=== PATIENT | female | born 1950 | race Caucasian/White ===

== ENCOUNTER → 2017-09-16 | Day surgery (SDC) | payer BC ==
[~2017-09-16] MED LIST: ACETAMINOPHEN 1000 MG/100 ML 100 ML IV ONE; AMITRIPTYLINE H25 MG PO; ASPIRIN81 M2 PO; ATIVAN1 MG PO; BENTYL10 MG PO; COQ-10100 MG; DEXAMETHASONE SOD PHOS 10 MG/1 ML VIAL ONE; ELAVIL25 MG GT; FENTANYL CITRATE/PF 100MCG/2 ML INJ ONE; FLAGYL250 MG PO; FOLIC ACID1 MG PO; FUROSEMIDE20 MG PO; HORMONE SHOT; HYOSCYAMINE0.125 M2 SL; IMITREX6 MG/0.52 IM; LEVAQUIN500 MG PO; LEXAPRO10 MG PO; LIDOCAINE HCL 2% LOCAL INJ 5 ML SDV VIAL INJ ONE; LINZESS PO; LUNESTA3 MG PO; METOCLOPRAMIDE HCL 10 MG/2ML VIAL ONE; MIDAZOLAM HCL 2 MG/2 ML VIAL ONE; NORCO 7.5-3251 EACH PO; PANTOPRAZOLE 40 MG 10ML VIAL ONE; PHENERGAN PO; PREMARIN0.625 MG PO; PROMETHAZINE HCL (IM) 25 MG/ML VIAL ONE; PROPOFOL IV EMULSION 10 MG/ML 50 ML VIAL ONE; RESTORIL7.5 MG PO; SYNTHROID50 MCG PO; VITAMIN D1000 UNI1 PO; Z.0.LIPITOR20 MG PO; Z.0.MAXALT10 MG PO; Z.0.PROTONIX40 MG PO; ZOFRAN4 MG PO
--- NOTE | 2017-09-16 12:24 | Operative Report ---
DATE OF PROCEDURE: September 16, 2017 REFERRING PHYSICIAN: Dr. Rhea Ruby. PROCEDURE PERFORMED: 1. Esophagogastroduodenoscopy. 2. Colonoscopy with polypectomy. INDICATIONS FOR ESOPHAGOGASTRODUODENOSCOPY: Heartburn indigestion, nausea. INDICATIONS FOR COLONOSCOPY: Colorectal cancer screening. MEDICATION: Patient was done under MAC. Please see anesthesiologist's note. PROCEDURE: With the patient in the left lateral decubitus position, the flexible fiberoptic Olympus gastroscope was introduced into the esophagus under direct visualization without any difficulty. There was some patchy erythema noted in the distal esophagus. The scope was then advanced with ease into the stomach. Mucosa overlying the antrum and the body revealed some patchy erythema and mild to moderate edema, and biopsies were obtained and sent to stain for H. pylori. Pylorus appeared to be of normal contour and shape, was intubated with ease, and the scope was advanced all the way to the 2nd portion of the duodenum. The scope was then withdrawn slowly. Mucosa overlying the proximal 2nd portion and the duodenal bulb appeared to be within normal limits. The scope was then withdrawn back into the stomach and retroflexed, and the mucosa overlying the fundus appeared to be within normal limits. There was an intact January fundoplication. The scope was then straightened out. The stomach was decompressed. The scope was subsequently withdrawn. Patient tolerated the procedure well. IMPRESSION: 1. Distal esophagitis, mild. 2. Status post January fundoplication, intact. 3. Gastritis biopsied. Biopsies sent to stain for H. pylori. PLAN: Follow up histology. Initiate Protonix 40 mg 1 p.o. q.a.m. a.c. Patient was then turned around and after adequate lubrication of the anal canal, the flexible fiberoptic Olympus colonoscope was inserted into the rectum with ease and advanced all the way to the cecum. It was then withdrawn slowly. Mucosa overlying the cecum and ascending colon appeared to be within normal limits. One polyp was hot biopsied from the transverse colon. The descending colon appeared to be within normal limits. Diverticular disease was noted in the sigmoid colon. One polyp was hot biopsied from the rectum. The scope was then retroflexed into the distal rectum and small internal hemorrhoids were noted, none of which was actively bleeding. The scope was then straightened out. The rectosigmoid area as well as the distal rectal area were decompressed. The scope was subsequently withdrawn. Patient tolerated the procedure well. IMPRESSION: 1. Transverse colon polyp hot biopsied. 2. Diverticulosis. 3. Rectal polyp hot biopsied. 4. Internal hemorrhoids, none actively bleeding. PLAN: Follow up histology. Initiate high-fiber low-fat diet. Initiate high-fiber supplement. Patient will need a followup colonoscopy in 3 years. Job#: [id number] cc:RHEA RUBY MD
== END | disposition home or self-care (01) ==
LOC: OR 07:36
PROVIDERS: ATTEND Internal Medicine Gastroenterology
DX: Z12.11 Encounter for screening for malignant neoplasm of colon (principal); D12.3 Benign neoplasm of transverse colon; K62.1 Rectal polyp; K29.70 Gastritis, unspecified, without bleeding; K58.9 Irritable bowel syndrome, unspecified; K20.9 Esophagitis, unspecified; K21.9 Gastro-esophageal reflux disease without esophagitis; K57.30 Diverticulosis of large intestine without perforation or abscess without bleeding; K64.8 Other hemorrhoids; I10 Essential (primary) hypertension; E03.9 Hypothyroidism, unspecified; R05 Cough; F32.9 Major depressive disorder, single episode, unspecified; F41.9 Anxiety disorder, unspecified; Z01.810 Encounter for preprocedural cardiovascular examination; Z68.33 Body mass index [BMI] 33.0-33.9, adult; Z87.891 Personal history of nicotine dependence; Z80.0 Family history of malignant neoplasm of digestive organs
CPT/HCPCS: 43239; 45384; 93005; J1100; J2001; J2250; J2550; J2765

== ENCOUNTER → 2017-10-26 | Outpatient (CLI) | payer BC ==
[~2017-10-26] MED LIST changes: -ACETAMINOPHEN 1000 MG/100 ML 100 ML IV ONE; -DEXAMETHASONE SOD PHOS 10 MG/1 ML VIAL ONE; -FENTANYL CITRATE/PF 100MCG/2 ML INJ ONE; +IOPAMIDOL 370 MG/ML 200 ML INFUS..BTL INJ ONE; -LIDOCAINE HCL 2% LOCAL INJ 5 ML SDV VIAL INJ ONE; -METOCLOPRAMIDE HCL 10 MG/2ML VIAL ONE; -MIDAZOLAM HCL 2 MG/2 ML VIAL ONE; -PANTOPRAZOLE 40 MG 10ML VIAL ONE; -PROMETHAZINE HCL (IM) 25 MG/ML VIAL ONE; -PROPOFOL IV EMULSION 10 MG/ML 50 ML VIAL ONE; +SODIUM CHLORIDE 0.9% 50ML 50 ML ONE
[2017-10-26 15:09] LABS: BLOOD UREA NITROGEN 10 mg/dL (7-26); BUN/CREATININE RATIO 13 (6-25); CREATININE, SERUM 0.75 mg/dL (0.57-1.11); EST GLOMERULAR FILTRATION RATE > 60 ML/MIN (60-)
--- NOTE | 2017-10-26 17:50 | Diagnostic Imaging Report ---
PROCEDURE: CT scan of the chest WITH intravenous contrast, using standard protocol. TECHNIQUE: The chest was scanned utilizing a multidetector helical scanner from the lung apex through the level of the adrenal glands after the IV administration of 100 cc of Isovue 370. Coronal and sagittal multiplanar reformations were obtained. COMPARISON: [facility], CT, CT CHEST W, 10/30/2016, 10:22. INDICATIONS: RIGHT LUNG BONE DENSITY FINDINGS: Lines/tubes: None. Lungs and Airways: Mild bilateral centrilobular emphysematous changes, predominantly in the upper lobes. Stable 3-4 mm pulmonary nodule in the right upper lobe (series 3, image 52). No other pulmonary nodules. No masses or consolidation. Mild linear opacities in the lateral right lower lobe, consistent with scarring (series 3, image 88). Airways are clear, without endobronchial lesions. Pleura: No effusion, or pneumothorax. Heart and mediastinum: Thyroid is unremarkable. Heart size is normal. No pericardial effusion. The aorta is non-aneurysmal. The main pulmonary artery is normal in caliber. Aberrant right subclavian artery is again noted. Stable prominent right epicardial fat-pad Lymph nodes: No mediastinal, hilar, or axillary adenopathy. Abdomen: Limited contrast-enhanced views of the upper abdomen show no abnormality within the visualized liver, spleen, pancreas, or kidneys. Stable thickening of the anterior limb of the left adrenal gland (series 2, image 110). Bones: No aggressive lytic lesion. Soft tissues are unremarkable. IMPRESSION: 1. stable 3-4 mm pulmonary nodule in the right upper lobe since 12 months ago. No further followup is indicated per [employer] 2017 guidelines. 2. Stable mild bilateral centrilobular emphysematous changes. Idris Mondragon M.D. Dictated by: Idris Mondragon M.D. on 10/26/2017 at 17:52 Electronically approved by: Idris Mondragon M.D. on 10/26/2017 at 17:52
== END ==
LOC: CT 14:18
DX: J98.4 Other disorders of lung (principal)
CPT/HCPCS: 36415; 71260; 82565; 84520; Q9967

== ENCOUNTER → 2018-06-23 | Outpatient (CLI) | payer BC, MEDICARE ==
[~2018-06-23] MED LIST changes: -IOPAMIDOL 370 MG/ML 200 ML INFUS..BTL INJ ONE; -SODIUM CHLORIDE 0.9% 50ML 50 ML ONE
== END ==
LOC: RAD 10:11
DX: M79.605 Pain in left leg (principal); R60.9 Edema, unspecified
CPT/HCPCS: 93971

== ENCOUNTER → 2020-02-07 | Day surgery (SDC) | payer BC, MEDICARE, OTHER ==
[2020-02-02 09:30] LABS: BASOPHILS # (AUTO) 0.1 (0.0-0.1); EOSINOPHILS # (AUTO) 0.2 (0.0-0.4); EOSINOPHILS % 1.9 % (0.0-6.0); HEMATOCRIT 43.4 % (34.2-44.1); HEMOGLOBIN 13.8 g/dL (12.0-16.0); LYMPHOCYTES # (AUTO) 2.3 (1.0-3.2); MEAN CORPUSCULAR HEMOGLOBIN 29.6 pg (28-32); MEAN CORPUSCULAR HGB CONC 31.8 g/dL (31-35); MEAN CORPUSCULAR VOLUME 92.9 fL (81-99); MONOCYTES # (AUTO) 0.7 (0.2-0.8); MONOCYTES % 7.3 % (4.4-11.3); NEUTROPHILS # (AUTO) 6.2 (2.1-6.9); NEUTROPHILS % 65.3 % (38.7-80.0); PLATELET COUNT 315 x10e3/uL (140-360); RED BLOOD COUNT 4.67 x10e6/uL (3.6-5.1)
[~2020-02-07] MED LIST changes: +BIOTIN1 MG PO; +FENTANYL CITRATE/PF 100MCG/2 ML INJ ONE; +GLUCAGON FOR INJ 1 MG VIAL ONE; +HYOSCYAMINE 0.125 MG TAB ONE; +LINZESS290 MCG PO; +METOCLOPRAMIDE HCL 10 MG/2ML VIAL ONE; +METOPROLOL SUCC25 MG PO; +MIDAZOLAM HCL 2 MG/2 ML VIAL ONE; +PANTOPRAZOLE 40 MG 10ML VIAL ONE; +PROLIA60 MG/1 ML INJ; +PROPOFOL IV EMULSION 10 MG/ML 20 ML VIAL ONE; +SODIUM CHLORIDE 0.9% 50ML 50 ML ONE; +VITAMIN B122500 MCG PO
[2020-02-07 11:15] VITALS: BP 117/88
--- NOTE | 2020-02-07 11:42 | Operative Report ---
DATE OF PROCEDURE: 02/07/2020 SURGEON: Vernon Mendenhall MD PROCEDURES: EGD with biopsies and colonoscopy with polypectomy and biopsies. INDICATION FOR EGD: Dyspepsia. INDICATIONS FOR COLONOSCOPY: Lower abdominal pain, mother with colon cancer, colorectal cancer screening. MEDICATIONS: The patient was done under MAC, please see anesthesiologist's note. PROCEDURE IN DETAIL: With the patient in the left lateral decubitus position, the flexible fiberoptic Olympus gastroscope was introduced into the esophagus under direct visualization without any difficulty. The esophagus appeared to be within normal limits. The scope was then advanced with ease into the stomach. Mucosa overlying the antrum and the body revealed some patchy erythema and [id number] edema, and biopsies were obtained and sent to stain for H. pylori. A minute submucosal nodule was noted in the antrum that was removed per the cold biopsy forceps. Pylorus was intubated with ease and the scope was advanced all the way to the second part of the duodenum. Mucosa overlying the proximal second portion as well as the duodenal bulb grossly appeared to be within normal limits. Biopsies were obtained to rule out sprue. The scope was then withdrawn back into the stomach and retroflexed, and the patient is status post January fundoplication appears to be intact. The scope was then straightened out, it was subsequently withdrawn, and the patient tolerated the procedure well. IMPRESSION: 1. Normal esophagus. 2. Status post January fundoplication, intact. 3. Gastritis, biopsied, biopsies sent to stain for Helicobacter pylori. 4. Submucosal nodule, antrum, biopsied. 5. Rule out sprue. PLAN: Follow up histology. Continue Protonix 40 mg one p.o. before meals b.i.d. The patient was then turned around and after adequate lubrication of the anal canal, a flexible fiberoptic Olympus colonoscope was inserted into the rectum with ease and advanced all the way to the cecum. Mucosa overlying the cecum and ascending colon appeared to be within normal limits. A minute polyp was removed per the cold biopsy forceps from the distal transverse colon and another minute polyp was removed per the cold biopsy forceps from the descending colon. Diverticular disease was noted to involve the sigmoid colon. There were some patchy mild inflammatory changes noted in the sigmoid and random biopsies were obtained. The scope was then retroflexed into the distal rectum and small internal hemorrhoids were noted, none of which was actively bleeding. The scope was then straightened out, it was subsequently withdrawn, and the patient tolerated the procedure. IMPRESSION: 1. Transverse colon polyp, removed per cold biopsy forceps. 2. Descending colon polyp, removed per cold biopsy forceps. 3. Diverticulosis. 4. Segmental colitis, mild, patchy sigmoid colon, biopsies obtained. 5. Small internal hemorrhoids, none actively bleeding. PLAN: Follow up histology. Continue Linzess 290 mcg one p.o. q.a.m. before meals and add VSL#3 one p.o. b.i.d. The patient might benefit from a followup colonoscopy in 5 years. Vernon Mendenhall MD [facility] [place] [place] /[id number] cc: Arturo Mendenhall MD
== END | disposition home or self-care (01) ==
LOC: OR 07:23
PROVIDERS: ATTEND Internal Medicine Gastroenterology
DX: K57.92 Diverticulitis of intestine, part unspecified, without perforation or abscess without bleeding (principal); D12.3 Benign neoplasm of transverse colon; D12.4 Benign neoplasm of descending colon; K29.50 Unspecified chronic gastritis without bleeding; K31.89 Other diseases of stomach and duodenum; K50.10 Crohn's disease of large intestine without complications; K21.9 Gastro-esophageal reflux disease without esophagitis; K44.9 Diaphragmatic hernia without obstruction or gangrene; K59.00 Constipation, unspecified; K64.8 Other hemorrhoids; E03.9 Hypothyroidism, unspecified; I10 Essential (primary) hypertension; E78.5 Hyperlipidemia, unspecified; Z88.8 Allergy status to other drugs, medicaments and biological substances; Z91.041 Radiographic dye allergy status; Z01.810 Encounter for preprocedural cardiovascular examination; Z01.812 Encounter for preprocedural laboratory examination; Z11.59 Encounter for screening for other viral diseases; Z68.34 Body mass index [BMI] 34.0-34.9, adult; Z98.890 Other specified postprocedural states; Z80.0 Family history of malignant neoplasm of digestive organs
CPT/HCPCS: 36415; 43239; 45380; 85025; 93005; C9113; J1610; J2250; J2704; J2765; J3010; U0002

== ENCOUNTER 2020-06-10 09:54 | Inpatient (IN) | payer BC, MEDICARE ==
[~2020-06-10] VITALS: Ht 162.6 cm; Wt 85.3 kg
[~2020-06-10 09:54] MED LIST changes: -FENTANYL CITRATE/PF 100MCG/2 ML INJ ONE; -GLUCAGON FOR INJ 1 MG VIAL ONE; -HYOSCYAMINE 0.125 MG TAB ONE; -METOCLOPRAMIDE HCL 10 MG/2ML VIAL ONE; -MIDAZOLAM HCL 2 MG/2 ML VIAL ONE; -PANTOPRAZOLE 40 MG 10ML VIAL ONE; -PROPOFOL IV EMULSION 10 MG/ML 20 ML VIAL ONE; -SODIUM CHLORIDE 0.9% 50ML 50 ML ONE
[2020-06-10] MEDS ORDERED: ONDANSETRON HCL INJ 2MG/ML 2ML 2 MG/ML VIAL IV STA (10:27)
[2020-06-10] MEDS ORDERED: SODIUM CHLORIDE 0.9% 1000ML 1,000 ML IV SCH (10:30)
[2020-06-10] MEDS ORDERED: PROMETHAZINE 12.5MG/ NACL 0.9% 12.5 MG/50 ML BAG IV ONE (10:30)
[2020-06-10] MEDS ORDERED: PROMETHAZINE HCL (IM) 25 MG/ML VIAL IM ONE (10:58)
[2020-06-10] MEDS ORDERED: SODIUM CHLORIDE 0.9% 1000ML 1,000 ML ONE (10:58)
[2020-06-10] MEDS ORDERED: DIATRIZOATE MEGL/DIATRIZOA SOD 30 ML BTL PO ONE (11:12)
[2020-06-10] MEDS ORDERED: DIPHENHYDRAMINE HCL 25 MG CAP PO ONE (11:30)
[2020-06-10] MEDS ORDERED: PREDNISONE 20 MG TAB ONE (11:30)
[2020-06-10] MEDS ORDERED: PREDNISONE 20 MG TAB PO ONE (11:30)
[2020-06-10] MEDS ORDERED: DIPHENHYDRAMINE HCL 25 MG CAP ONE (11:30)
[2020-06-10] MEDS ORDERED: SODIUM CHLORIDE 0.9% 50ML 50 ML ONE (11:31)
[2020-06-10] MEDS ORDERED: IOPAMIDOL 370 MG/ML 200 ML INFUS..BTL INJ ONE (11:32)
[2020-06-10] MEDS ORDERED: KETOROLAC TROMETHAMINE 30 MG/ML VIAL IV STA (13:16)
[2020-06-10] MEDS ORDERED: MORPHINE SULFATE INJ 4 MG/ML INJ 1ML IV STA (13:17)
[2020-06-10] MEDS ORDERED: SODIUM CHLORIDE FLUSH 10 ML SYR INJ PRN (13:45)
[2020-06-10] MEDS ORDERED: PROMETHAZINE HCL (IM) 25 MG/ML VIAL IM PRN (13:45)
[2020-06-10] MEDS ORDERED: MORPHINE SULFATE INJ 4 MG/ML INJ 1ML ONE (13:49)
[2020-06-10 15:58] VITALS: BP 125/72
[2020-06-10 16:05] VITALS: BP 125/72
[2020-06-10 16:15] VITALS: BP 125/72
[2020-06-10] MEDS ORDERED: HYDROMORPHONE 1MG/1ML INJ IV PRN (17:30)
[2020-06-10] MEDS ORDERED: METRONIDAZOLE 500MG/NS 100ML 100 ML IV SCH (18:00)
[2020-06-10] MEDS ORDERED: PIPER-TAZ 3.375 GM 50 ML IV SCH (18:00)
[2020-06-10] MEDS ORDERED: SODIUM CHLORIDE 0.9% 250ML 250 ML ONE (18:13)
[2020-06-10] MEDS: HYDROMORPHONE 2MG/ML 2 MG/ML ML IV PRN (18:15)
[2020-06-10 19:54] VITALS: BP 113/55
[2020-06-10] MEDS ORDERED: OMEPRAZOLE40 MG PO (20:38)
[2020-06-10 21:00] VITALS: BP 113/55
[2020-06-10] MEDS: NON-FORMULARY MEDICATION (Eszopiclone (Lunesta) 3 MG) PO SCH (21:00)
[2020-06-10] MEDS: AMITRIPTYLINE HCL 25 MG TAB PO SCH (21:00)
[2020-06-10] MEDS ORDERED: LORAZEPAM 1 MG TAB PO PRN (21:00)
[2020-06-11] VITALS (8 sets, daily range): BP systolic 93–130; BP diastolic 52–70
[2020-06-11] MEDS: HYDROMORPHONE 2MG/ML 2 MG/ML ML IV PRN ×4 (01:24→19:20)
[2020-06-11] MEDS: PROMETHAZINE 12.5MG/ NACL 0.9% 12.5 MG/50 ML BAG IV PRN ×4 (01:24→20:33)
[2020-06-11] MEDS: PIPER-TAZ 3.375 GM 50 ML IV SCH ×4 (02:21→18:45)
[2020-06-11 05:58] LABS: ALANINE AMINOTRANSFERASE 16 IU/L (0-55); ALBUMIN 3.6 g/dL (3.5-5.0); ALBUMIN/GLOBULIN RATIO 1.2 (0.8-2.0); ALKALINE PHOSPHATASE 48 IU/L (40-150); ANION GAP 14.7 mmol/L (8-16); BLOOD UREA NITROGEN 8 mg/dL (7-26); BUN/CREATININE RATIO 10 (6-25); CALCIUM 8.5 mg/dL (8.4-10.2); CARBON DIOXIDE 21 mmol/L (22-29); CHLORIDE 104 mmol/L (98-107); CREATININE, SERUM 0.81 mg/dL (0.57-1.11); EST GLOMERULAR FILTRATION RATE > 60 ML/MIN (60-); GLUCOSE 113 mg/dL (74-118); POTASSIUM 3.7 mmol/L (3.5-5.1); SODIUM 136 mmol/L (136-145)
[2020-06-11] MEDS ORDERED: LEVOTHYROXINE SODIUM 50 MCG TAB PO SCH (06:00)
[2020-06-11] MEDS: METRONIDAZOLE 500MG/NS 100ML 100 ML IV SCH ×4 (06:01→23:45)
[2020-06-11 06:25] LABS: BASOPHILS # (AUTO) 0.1 (0.0-0.1); BASOPHILS % 0.2 % (0.0-1.0); EOSINOPHILS # (AUTO) 0.1 (0.0-0.4); EOSINOPHILS % 0.2 % (0.0-6.0); HEMATOCRIT 44.6 % (34.2-44.1); LYMPHOCYTES # (AUTO) 2.4 (1.0-3.2); LYMPHOCYTES % 11.7 % (18.0-39.1); MEAN CORPUSCULAR HEMOGLOBIN 29.9 pg (28-32); MEAN CORPUSCULAR HGB CONC 31.4 g/dL (31-35); MEAN CORPUSCULAR VOLUME 95.1 fL (81-99); MONOCYTES # (AUTO) 1.2 (0.2-0.8); NEUTROPHILS # (AUTO) 16.3 (2.1-6.9); NEUTROPHILS % 81.2 % (38.7-80.0); PLATELET COUNT 300 x10e3/uL (140-360); RED BLOOD COUNT 4.69 x10e6/uL (3.6-5.1); RED CELL DISTRIBUTION WIDTH 14.3 % (11.7-14.4)
[2020-06-11] MEDS ORDERED: FUROSEMIDE 20 MG TAB PO SCH (09:00)
[2020-06-11 09:53] LABS: CLARITY,URINE CLOUDY (CLEAR); COLOR,URINE YELLOW (YELLOW); KETONES,URINE NEGATIVE (NEGATIVE); LEUKOCYTE ESTERASE ,URINE NEGATIVE (NEGATIVE); NITRITE,URINE NEGATIVE (NEGATIVE); PROTEIN,URINE DIPSTICK NEGATIVE (NEGATIVE); URINE UROBILINOGEN 0.2 mg/dL (0.2 - 1)
[2020-06-11 10:17] LABS: BACTERIA,URINE MANY /HPF; CALCIUM OXALATE CRYSTALS,UR RARE (FEW); EPITHELIAL CELLS,URINE RARE /LPF; RBC,URINE 0-5 /HPF (0-5); URIC ACID CRYSTALS,URINE MODERATE (FEW); WBC,URINE (MAN) 0-5 /HPF (0-5)
[2020-06-11 10:18] LABS: AMORPHOUS SEDIMENT,URINE FEW (FEW)
[2020-06-11] MEDS: METOPROLOL SUCCINATE 25 MG TAB XL PO SCH ×2 (11:00→17:37)
[2020-06-11] MEDS: SODIUM CHLORIDE 0.9% 1000ML 1,000 ML IV SCH (14:25)
[2020-06-11] MEDS ORDERED: DIPHENHYDRAMINE HCL 25 MG CAP PO PRN (17:15)
[2020-06-11] MEDS: FLUCONAZOLE 100 MG TAB PO SCH (17:38)
[2020-06-11] MEDS: NON-FORMULARY MEDICATION (Eszopiclone (Lunesta) 3 MG) PO SCH (21:00)
[2020-06-11] MEDS: AMITRIPTYLINE HCL 25 MG TAB PO SCH (21:28)
[2020-06-12] VITALS (8 sets, daily range): BP systolic 92–114; BP diastolic 50–85
[2020-06-12] MEDS: PIPER-TAZ 3.375 GM 50 ML IV SCH ×4 (00:55→16:30)
[2020-06-12] MEDS: SODIUM CHLORIDE 0.9% 1000ML 1,000 ML IV SCH ×2 (03:59→16:00)
[2020-06-12] MEDS: METRONIDAZOLE 500MG/NS 100ML 100 ML IV SCH ×3 (05:18→18:36)
[2020-06-12] MEDS: HYDROMORPHONE 2MG/ML 2 MG/ML ML IV PRN ×4 (05:35→17:25)
[2020-06-12] MEDS: LEVOTHYROXINE SODIUM 75 MCG TAB PO SCH (05:39)
[2020-06-12] MEDS: PROMETHAZINE 12.5MG/ NACL 0.9% 12.5 MG/50 ML BAG IV PRN ×5 (05:48→21:31)
[2020-06-12 06:10] LABS: BASOPHILS # (AUTO) 0.1 (0.0-0.1); EOSINOPHILS # (AUTO) 0.2 (0.0-0.4); EOSINOPHILS % 1.8 % (0.0-6.0); HEMATOCRIT 37.2 % (34.2-44.1); HEMOGLOBIN 11.9 g/dL (12.0-16.0); LYMPHOCYTES # (AUTO) 2.7 (1.0-3.2); LYMPHOCYTES % 31.1 % (18.0-39.1); MEAN CORPUSCULAR HEMOGLOBIN 29.2 pg (28-32); MEAN CORPUSCULAR VOLUME 91.2 fL (81-99); MONOCYTES # (AUTO) 0.6 (0.2-0.8); MONOCYTES % 7.3 % (4.4-11.3); NEUTROPHILS # (AUTO) 5.1 (2.1-6.9); NEUTROPHILS % 58.2 % (38.7-80.0); PLATELET COUNT 250 x10e3/uL (140-360); RED BLOOD COUNT 4.08 x10e6/uL (3.6-5.1); RED CELL DISTRIBUTION WIDTH 14.3 % (11.7-14.4)
[2020-06-12 06:40] LABS: ALANINE AMINOTRANSFERASE 11 IU/L (0-55); ALBUMIN 3.1 g/dL (3.5-5.0); ALBUMIN/GLOBULIN RATIO 1.3 (0.8-2.0); ALKALINE PHOSPHATASE 42 IU/L (40-150); ANION GAP 9.5 mmol/L (8-16); BLOOD UREA NITROGEN 6 mg/dL (7-26); BUN/CREATININE RATIO 8 (6-25); CALCIUM 7.3 mg/dL (8.4-10.2); CARBON DIOXIDE 24 mmol/L (22-29); CHLORIDE 108 mmol/L (98-107); CREATININE, SERUM 0.75 mg/dL (0.57-1.11); EST GLOMERULAR FILTRATION RATE > 60 ML/MIN (60-); GLUCOSE 77 mg/dL (74-118); POTASSIUM 3.5 mmol/L (3.5-5.1); SODIUM 138 mmol/L (136-145)
[2020-06-12] MEDS: METOPROLOL SUCCINATE 25 MG TAB XL PO SCH ×2 (09:00→16:23)
[2020-06-12] MEDS: FLUCONAZOLE 100 MG TAB PO SCH (09:00)
[2020-06-12] MEDS ORDERED: POTASSIUM CHLORIDE 20 MEQ TAB CR PO ONE (14:00)
[2020-06-12 15:51] LABS: SODIUM,URINE 56 mmol/L
[2020-06-12] MEDS: AMITRIPTYLINE HCL 25 MG TAB PO SCH (20:35)
[2020-06-12] MEDS: NON-FORMULARY MEDICATION (Eszopiclone (Lunesta) 3 MG) PO SCH (21:00)
[2020-06-12] MEDS: MORPHINE SULFATE INJ 4 MG/ML INJ 1ML IV PRN (21:32)
[2020-06-13] VITALS (10 sets, daily range): BP systolic 95–136; BP diastolic 46–91
[2020-06-13] MEDS: METRONIDAZOLE 500MG/NS 100ML 100 ML IV SCH ×5 (00:15→23:51)
[2020-06-13] MEDS: PIPER-TAZ 3.375 GM 50 ML IV SCH ×4 (00:50→17:50)
[2020-06-13] MEDS: PROMETHAZINE 12.5MG/ NACL 0.9% 12.5 MG/50 ML BAG IV PRN ×5 (03:04→21:04)
[2020-06-13] MEDS: HYDROMORPHONE 2MG/ML 2 MG/ML ML IV PRN ×5 (03:04→21:04)
[2020-06-13 05:13] LABS: BASOPHILS # (AUTO) 0.1 (0.0-0.1); EOSINOPHILS # (AUTO) 0.4 (0.0-0.4); EOSINOPHILS % 3.8 % (0.0-6.0); HEMOGLOBIN 11.7 g/dL (12.0-16.0); LYMPHOCYTES # (AUTO) 2.9 (1.0-3.2); LYMPHOCYTES % 30.8 % (18.0-39.1); MEAN CORPUSCULAR HGB CONC 32.5 g/dL (31-35); MEAN CORPUSCULAR VOLUME 92.3 fL (81-99); MONOCYTES # (AUTO) 0.7 (0.2-0.8); MONOCYTES % 7.9 % (4.4-11.3); NEUTROPHILS # (AUTO) 5.2 (2.1-6.9); NEUTROPHILS % 56.2 % (38.7-80.0); PLATELET COUNT 266 x10e3/uL (140-360); RED CELL DISTRIBUTION WIDTH 14.3 % (11.7-14.4)
[2020-06-13] MEDS: SODIUM CHLORIDE 0.9% 1000ML 1,000 ML IV SCH ×3 (05:23→23:51)
[2020-06-13] MEDS: LEVOTHYROXINE SODIUM 75 MCG TAB PO SCH (05:36)
[2020-06-13 05:57] LABS: ALANINE AMINOTRANSFERASE 9 IU/L (0-55); ALBUMIN 3.2 g/dL (3.5-5.0); ALBUMIN/GLOBULIN RATIO 1.3 (0.8-2.0); ALKALINE PHOSPHATASE 45 IU/L (40-150); ANION GAP 9.1 mmol/L (8-16); BLOOD UREA NITROGEN 7 mg/dL (7-26); BUN/CREATININE RATIO 9 (6-25); CALCIUM 7.8 mg/dL (8.4-10.2); CARBON DIOXIDE 22 mmol/L (22-29); CHLORIDE 111 mmol/L (98-107); CREATININE, SERUM 0.77 mg/dL (0.57-1.11); EST GLOMERULAR FILTRATION RATE > 60 ML/MIN (60-); GLUCOSE 85 mg/dL (74-118); POTASSIUM 4.1 mmol/L (3.5-5.1); SODIUM 138 mmol/L (136-145)
[2020-06-13] MEDS: FLUCONAZOLE 100 MG TAB PO SCH (09:19)
[2020-06-13] MEDS: METOPROLOL SUCCINATE 25 MG TAB XL PO SCH ×2 (09:23→17:50)
[2020-06-13] MEDS ORDERED: SIMETHICONE 80 MG CHEW PO PRN (11:15)
[2020-06-13] MEDS: POLYETHYLENE GLYCOL 3350 17 GM PACK PO SCH ×3 (11:31→21:00)
[2020-06-13] MEDS: AMITRIPTYLINE HCL 25 MG TAB PO SCH (21:03)
[2020-06-13] MEDS: NON-FORMULARY MEDICATION (Eszopiclone (Lunesta) 3 MG) PO SCH (23:25)
[2020-06-14] MEDS: PIPER-TAZ 3.375 GM 50 ML IV SCH ×4 (00:57→17:23)
[2020-06-14] MEDS: PROMETHAZINE 12.5MG/ NACL 0.9% 12.5 MG/50 ML BAG IV PRN ×3 (02:33→14:06)
[2020-06-14] MEDS: HYDROMORPHONE 2MG/ML 2 MG/ML ML IV PRN ×3 (02:33→14:06)
[2020-06-14 04:19] LABS: CLARITY,URINE CLEAR (CLEAR); COLOR,URINE YELLOW (YELLOW); KETONES,URINE NEGATIVE (NEGATIVE); LEUKOCYTE ESTERASE ,URINE TRACE (NEGATIVE); NITRITE,URINE NEGATIVE (NEGATIVE); PROTEIN,URINE DIPSTICK NEGATIVE (NEGATIVE); URINE UROBILINOGEN 0.2 mg/dL (0.2 - 1)
[2020-06-14 04:28] LABS: BACTERIA,URINE FEW /HPF; EPITHELIAL CELLS,URINE FEW /LPF
[2020-06-14 04:53] VITALS: BP 113/66
[2020-06-14] MEDS: LEVOTHYROXINE SODIUM 75 MCG TAB PO SCH (06:34)
[2020-06-14] MEDS: METRONIDAZOLE 500MG/NS 100ML 100 ML IV SCH ×3 (07:17→17:23)
[2020-06-14] MEDS: MORPHINE SULFATE INJ 4 MG/ML INJ 1ML IV PRN (07:17)
[2020-06-14 08:13] VITALS: BP 122/80
[2020-06-14 08:15] LABS: TOTAL VOLUME, URINE 450 ml/24hr (800-2000)
[2020-06-14 09:00] VITALS: BP 122/80
[2020-06-14] MEDS: FUROSEMIDE 20 MG TAB PO SCH (09:00)
[2020-06-14] MEDS ORDERED: POLYETHYLENE GLYCOL 3350 17 GM PACK PO SCH (09:00)
[2020-06-14] MEDS: METOPROLOL SUCCINATE 25 MG TAB XL PO SCH ×2 (09:00→15:39)
[2020-06-14] MEDS: POLYETHYLENE GLYCOL 3350 17 GM PACK PO SCH (09:00)
[2020-06-14] MEDS: FLUCONAZOLE 100 MG TAB PO SCH (09:00)
[2020-06-14 11:23] VITALS: BP 121/92
[2020-06-14] MEDS ORDERED: FUROSEMIDE INJ 10 MG/ML 4 ML VIAL IV ONE (15:30)
[2020-06-14 15:31] VITALS: BP 114/81
[2020-06-14] MEDS ORDERED: HYDROMORPHONE 2MG/ML 2 MG/ML ML IV PRN (17:45)
[2020-06-14] MEDS: HYDROMORPHONE 1MG/1ML INJ IV PRN ×2 (18:40→23:00)
[2020-06-14 20:00] VITALS: BP 135/83
[2020-06-14] MEDS: NON-FORMULARY MEDICATION (Eszopiclone (Lunesta) 3 MG) PO SCH (21:43)
[2020-06-14] MEDS: AMITRIPTYLINE HCL 25 MG TAB PO SCH (21:43)
[2020-06-14] MEDS: PROMETHAZINE HCL 25 MG TAB PO PRN (23:00)
[2020-06-15] VITALS: BP 112/63
[2020-06-15] MEDS: PIPER-TAZ 3.375 GM 50 ML IV SCH ×3 (01:04→12:00)
[2020-06-15] MEDS: METRONIDAZOLE 500MG/NS 100ML 100 ML IV SCH ×3 (01:04→12:00)
[2020-06-15 04:00] VITALS: BP 125/80
[2020-06-15 05:13] LABS: BASOPHILS # (AUTO) 0.1 (0.0-0.1); BASOPHILS % 0.7 % (0.0-1.0); EOSINOPHILS # (AUTO) 0.4 (0.0-0.4); EOSINOPHILS % 3.9 % (0.0-6.0); HEMATOCRIT 36.6 % (34.2-44.1); HEMOGLOBIN 12.2 g/dL (12.0-16.0); LYMPHOCYTES # (AUTO) 1.6 (1.0-3.2); LYMPHOCYTES % 16.4 % (18.0-39.1); MEAN CORPUSCULAR HEMOGLOBIN 30.3 pg (28-32); MEAN CORPUSCULAR HGB CONC 33.3 g/dL (31-35); MEAN CORPUSCULAR VOLUME 90.8 fL (81-99); MONOCYTES # (AUTO) 0.8 (0.2-0.8); MONOCYTES % 7.9 % (4.4-11.3); NEUTROPHILS # (AUTO) 6.8 (2.1-6.9); NEUTROPHILS % 70.5 % (38.7-80.0); PLATELET COUNT 260 x10e3/uL (140-360); RED BLOOD COUNT 4.03 x10e6/uL (3.6-5.1); RED CELL DISTRIBUTION WIDTH 14.1 % (11.7-14.4)
[2020-06-15 05:33] LABS: ANION GAP 10.5 mmol/L (8-16); BLOOD UREA NITROGEN 5 mg/dL (7-26); BUN/CREATININE RATIO 7 (6-25); CALCIUM 8.2 mg/dL (8.4-10.2); CARBON DIOXIDE 27 mmol/L (22-29); CHLORIDE 104 mmol/L (98-107); CREATININE, SERUM 0.72 mg/dL (0.57-1.11); EST GLOMERULAR FILTRATION RATE > 60 ML/MIN (60-); GLUCOSE 97 mg/dL (74-118); POTASSIUM 3.5 mmol/L (3.5-5.1); SODIUM 138 mmol/L (136-145)
[2020-06-15] MEDS: LEVOTHYROXINE SODIUM 75 MCG TAB PO SCH (05:38)
[2020-06-15] MEDS: PROMETHAZINE HCL 25 MG TAB PO PRN ×2 (05:43→14:44)
[2020-06-15] MEDS: HYDROMORPHONE 1MG/1ML INJ IV PRN ×3 (05:45→14:43)
[2020-06-15 08:36] VITALS: BP 126/68
[2020-06-15] MEDS: FUROSEMIDE 20 MG TAB PO SCH (08:40)
[2020-06-15] MEDS: METOPROLOL SUCCINATE 25 MG TAB XL PO SCH ×2 (08:40→16:23)
[2020-06-15] MEDS: POLYETHYLENE GLYCOL 3350 17 GM PACK PO SCH (08:40)
[2020-06-15] MEDS: FLUCONAZOLE 100 MG TAB PO SCH (08:40)
[2020-06-15 08:53] VITALS: BP 126/68
[2020-06-15 11:56] VITALS: BP 127/78
[2020-06-15] MEDS ORDERED: AUGMENTIN 875-1 EACH PO (15:04)
[2020-06-15] MEDS ORDERED: FLAGYL500 MG PO (15:05)
[2020-06-15 15:30] VITALS: BP 130/71
== END 2020-06-15 16:34 | disposition home or self-care (01) | DRG 392 ==
LOC: FSED 10:35 → ERHOLD 13:31 → MED/SURG2 14:57 → OBSVTOIN 06-11 13:41
DX: K57.32 Diverticulitis of large intestine without perforation or abscess without bleeding (principal); B37.3 Candidiasis of vulva and vagina; E86.0 Dehydration; E03.9 Hypothyroidism, unspecified; Z90.5 Acquired absence of kidney; I49.9 Cardiac arrhythmia, unspecified; G44.1 Vascular headache, not elsewhere classified; E66.9 Obesity, unspecified; Z68.32 Body mass index [BMI] 32.0-32.9, adult; Z20.822 Contact with and (suspected) exposure to COVID-19; N95.2 Postmenopausal atrophic vaginitis; K21.9 Gastro-esophageal reflux disease without esophagitis; Z88.8 Allergy status to other drugs, medicaments and biological substances; Z91.041 Radiographic dye allergy status
CPT/HCPCS: 36415; 74018; 74177; 76700; 76857; 78071; 80048; 80053; 81001; 81003; 81050; 82270; 82310; 82507; 83945; 83970; 84300; 84550; 85025; 87086; 96374; 96376; 99251; 99284; A9512; G0378; J1170; J1940; J2270; J2543; J2550; J7030; J7050; J7512; Q9967; U0002

== ENCOUNTER → 2021-08-15 | Outpatient (CLI) | payer BC, MEDICARE ==
[~2021-08-15] MED LIST changes: +AUGMENTIN 875-1 EACH PO; +FLAGYL500 MG PO; +OMEPRAZOLE40 MG PO
[2021-08-15 09:31] LABS: CREATININE, SERUM 0.78 mg/dL (0.57-1.11)
== END ==
LOC: CT 08:38
DX: Z09 Encounter for follow-up examination after completed treatment for conditions other than malignant neoplasm (principal); R22.2 Localized swelling, mass and lump, trunk
CPT/HCPCS: 36415; 70470; 71260; 82565; 84520

== ENCOUNTER → 2021-08-15 | Outpatient (CLI) | payer BC, MEDICARE ==
[~2021-08-15] MED LIST changes: +DIATRIZOATE MEGL/DIATRIZOA SOD 30 ML BTL PO ONE; +IOPAMIDOL 370 MG/ML 200 ML INFUS..BTL INJ ONE; +SODIUM CHLORIDE 0.9% 50ML 50 ML ONE
== END ==
LOC: CT 08:35
PROVIDERS: ATTEND Internal Medicine Gastroenterology
DX: R10.31 Right lower quadrant pain (principal)
CPT/HCPCS: 74177; Q9967

== ENCOUNTER → 2023-12-30 | Outpatient (REF) | payer OTHER ==
[~2023-12-30] MED LIST changes: +CARAFATE1 GM/10 ML PO; -DIATRIZOATE MEGL/DIATRIZOA SOD 30 ML BTL PO ONE; +IOPAMIDOL 370 MG/ML 100 ML INFUS..BTL INJ ONE; -IOPAMIDOL 370 MG/ML 200 ML INFUS..BTL INJ ONE; +PANTOPRAZOLE SO40 MG PO; +PROTONIX20 MG PO; +SODIUM CHLORIDE 0.9% 100 ML ONE; -SODIUM CHLORIDE 0.9% 50ML 50 ML ONE
[2023-12-30 17:14] LABS: CREATININE, SERUM 0.89 mg/dL (0.57-1.11)
== END ==
LOC: CT 15:42
PROVIDERS: ATTEND Internal Medicine
DX: R42 Dizziness and giddiness (principal); R51.9 Headache, unspecified; R26.2 Difficulty in walking, not elsewhere classified
CPT/HCPCS: 36415; 70496; 70498; 82565; 84520; J7050; Q9967